=== PATIENT | male | born 1985 | race Caucasian/White ===

== ENCOUNTER 2024-01-09 12:06 | Outpatient (CLI) | payer OTHER | END 2024-01-09 12:16 | disposition home or self-care (01) | LOC: RAD 12:06 | PROVIDERS: ATTEND Internal Medicine | DX: S59.902A Unspecified injury of left elbow, initial encounter (principal); M25.522 Pain in left elbow ==

== ENCOUNTER 2024-08-13 11:37 | Outpatient (CLI) | payer OTHER | END 2024-08-13 11:52 | disposition home or self-care (01) | LOC: MRI 11:37 | PROVIDERS: ATTEND Internal Medicine | DX: R20.2 Paresthesia of skin (principal) | CPT/HCPCS: 72141 ==